=== PATIENT | female | born 1965 ===

== ENCOUNTER 2023-07-05 05:00 | Day surgery (SDC) | payer OTHER ==
[~2023-07-05 05:00] MED LIST: ALLEGRA ALLERG180 MG PO; ELAVIL PO; ELIQUIS2.5 MG PO; NORVASC2.5 MG PO; PEPCID40 MG PO; PROTONIX40 MG PO; SINGULAIR10 MG PO
[2023-07-05] MEDS ORDERED: LEVOFLOXACIN250 MG PO (10:21)
== END 2023-07-05 13:00 | disposition home or self-care (01) ==
LOC: CIR.AMB 05:00
PROVIDERS: ATTEND Obstetrics & Gynecology Gynecology
DX: N32.81 Overactive bladder (principal); N39.41 Urge incontinence; Z20.822 Contact with and (suspected) exposure to COVID-19; Z88.2 Allergy status to sulfonamides; Z88.6 Allergy status to analgesic agent
CPT/HCPCS: 64581; 64590; 95972; C1767; C1778